=== PATIENT | female | born 1960 | race Caucasian/White ===

== ENCOUNTER → 2016-11-14 | Outpatient (CLI) | payer BC ==
--- NOTE | 2016-11-14 12:14 | Diagnostic Imaging Report ---
EXAMINATION: Three views of the right knee. INDICATION: Fall. FINDINGS: No fracture, dislocation, or radiopaque foreign body. The lateral and patellofemoral compartments demonstrate joint space narrowing and osteophytes. Minimal osteophytes at the medial compartment are seen. There is a small joint effusion. No fracture or dislocation is identified. IMPRESSION: Moderate osteoarthritis. Dictated by: Dictated on workstation # [id number]
== END ==
LOC: RAD 11:18
PROVIDERS: ATTEND Nurse Practitioner
DX: M17.11 Unilateral primary osteoarthritis, right knee (principal); W19.XXXA Unspecified fall, initial encounter; Y99.8 Other external cause status; Y92.009 Unspecified place in unspecified non-institutional (private) residence as the place of occurrence of the external cause
CPT/HCPCS: 73562